=== PATIENT | female | born 1980 | race African-American/Black ===

== ENCOUNTER 2016-07-04 08:45 | Emergency (ER) | payer OTHER ==
[~2016-07-04] VITALS: Ht 160 cm; Wt 73.0 kg
[~2016-07-04 08:45] MED LIST: PRENATAL1 TA2 PO
[2016-07-04 09:12] VITALS: BP 100/45
[2016-07-04] MEDS ORDERED: IBUPROFEN 600 MG TAB PO ONE (09:25)
--- NOTE | 2016-07-04 09:29 | NUR ---
35/F TO ED WITH C/O LLQ ABD PAIN X6 DAYS. PAIN 8/10. DENIES N/V/D. LUNGS CLEAR BILAT. HR EVEN AND REGULAR. AAOX4. VSS. NO SIGNS OF DISTRESS.
--- NOTE | 2016-07-04 09:58 | NUR ---
Dr. Macias evaluating patient at bedside.
--- NOTE | 2016-07-04 10:21 | NUR ---
US tech at bedside for exam.
--- NOTE | 2016-07-04 11:00 | NUR ---
RPatient appears to be resting comfortably in bed. Vital Signs within normal limits. Respirations even and unlabored.
[2016-07-04] MEDS ORDERED: HYDROcodone/APAP 5/325 MG 1 TAB TAB PO ONE (11:10)
[2016-07-04] MEDS ORDERED: FLUCONAZOLE 100 MG TAB PO ONE (12:05)
[2016-07-04 12:37] VITALS: BP 126/53
== END 2016-07-04 12:37 | disposition home or self-care (01) ==
LOC: MED 08:45
DX: N83.8 Other noninflammatory disorders of ovary, fallopian tube and broad ligament (principal); B37.3 Candidiasis of vulva and vagina; K21.9 Gastro-esophageal reflux disease without esophagitis
CPT/HCPCS: 76856; 81001; 81025; 87086; 87210; 99285; Q0092

== ENCOUNTER 2017-02-20 19:46 | Emergency (ER) | payer OTHER ==
[~2017-02-20] VITALS: Ht 160 cm; Wt 76.2 kg
[2017-02-20 19:55] VITALS: BP 105/67
--- NOTE | 2017-02-20 20:45 | NUR ---
PT TAKEN TO BED 12
--- NOTE | 2017-02-20 20:49 | NUR ---
36 Y/O F W/C/O ABD CRAMPING AND WHITE DISCHARGE X 2 DAYS. PT DENIES ANY PAIN WITH URINATION, FEVER OR CHILLS. ER MADE AWARE.
[2017-02-20] MEDS ORDERED: NACL 0.9% 1,000 ML IV ONE (21:41)
[2017-02-20] MEDS ORDERED: MORPHINE SULFATE 4 MG/ML SYR IVP ONE (21:45)
[2017-02-20] MEDS ORDERED: ONDANSETRON 4 MG/2 ML VIAL IVP ONE (21:45)
[2017-02-20 22:15] LABS: HEMATOCRIT 38.7 % (36-48); HEMOGLOBIN 13.2 g/dL (12.0-16.0); MEAN CORPUSCULAR HEMOGLOBIN 31 pg (27-31); MEAN CORPUSCULAR HGB CONC 34 g/dL (33-37); MEAN CORPUSCULAR VOLUME 90 fL (80-94); PLATELET COUNT (AUTO) 242 K/uL (140-450); RED BLOOD CELL COUNT(AUTO) 4.29 MIL/uL (4.20-5.40); RED CELL DISTRIBUTION WIDTH 12.1 % (11.6-13.7); WHITE BLOOD COUNT (AUTO) 8.3 K/uL (4.8-10.8)
[2017-02-20 22:24] LABS: BILIRUBIN,URINE NEGATIVE (NEGATIVE); BLOOD, URINE NEGATIVE (NEGATIVE); COLOR,URINE YELLOW (YELLOW); LEUKOCYTE ESTERASE ,URINE NEGATIVE (NEGATIVE); NITRITE, URINE NEGATIVE (NEGATIVE); UGLUCOSE NEGATIVE (NEGATIVE)
[2017-02-20 22:25] LABS: ANION GAP 8.4 (8-16); CARBON DIOXIDE 29.3 mmol/L (21-32); CREATININE 1.1 mg/dL (0.6-1.3); POTASSIUM 3.7 mmol/L (3.5-5.1)
[2017-02-20 22:31] LABS: ALBUMIN 3.8 g/dL (3.4-5.0); TOTAL BILIRUBIN 0.2 mg/dL (0.0-1.0)
[2017-02-20 22:35] LABS: EOSINOPHILS % (MANUAL) 2 % (0-4); LYMPHOCYTES % (MANUAL) 33 % (20-46); MONOCYTES % (MANUAL) 3 % (5-12)
[2017-02-20] MEDS ORDERED: KETOROLAC 30 MG/ML VIAL IVP ONE (22:35)
[2017-02-20 22:42] LABS: APPEARANCE,URINE HAZY (CLEAR); RBC,URINE 0-5 (RARE) /HPF (0-5); WBC,URINE 0-5 (RARE) /HPF (0-5)
--- NOTE | 2017-02-20 22:55 | NUR ---
Pelvic exam performed by DR BRUCE with ME at bedside for entire examination. Patient tolerated procedure WELL. Patient assisted to position of comfort after examination.
--- NOTE | 2017-02-20 22:58 | NUR ---
Karla leija in ED - 02/20/17 at 2310 by [facility] TO [facility].
--- NOTE | 2017-02-20 22:58 | NUR ---
[facility] [place] CULTURE TAKEN TO LAB.
--- NOTE | 2017-02-20 23:25 | NUR ---
Patient discharged with v/s stable. Written and verbal after care instructions given and explained. Patient alert, oriented and verbalized understanding of instructions. Ambulatory with steady gait. All questions addressed prior to discharge. ID band removed. Patient advised to follow up with PMD. Rx of FLAGYL 500 MG, BENTYL 20 MG given. Patient educated on indication of medication including possible reaction and side effects. Opportunity to ask questions provided and answered.
[2017-02-20 23:26] VITALS: BP 110/64
== END 2017-02-20 23:25 | disposition home or self-care (01) ==
LOC: MED 19:46
DX: N76.0 Acute vaginitis (principal); R10.9 Unspecified abdominal pain; K21.9 Gastro-esophageal reflux disease without esophagitis
CPT/HCPCS: 36415; 74176; 80053; 81001; 81025; 83690; 85025; 87210; 96361; 96374; 96375; 99285; J1885; J2270; J2405; J7030

== ENCOUNTER 2018-02-21 08:59 | Emergency (ER) | payer OTHER ==
[~2018-02-21] VITALS: Ht 160 cm; Wt 75.3 kg
[2018-02-21 09:08] VITALS: BP 105/53
[2018-02-21 11:55] LABS: BASOPHILS % (AUTO) 0.4 % (0.0-2.0); EOSINOPHILS # (AUTO) 0.1 K/uL (0-0.4); EOSINOPHILS % (AUTO) 1.3 % (0.0-4.0); HEMATOCRIT 37.8 % (36-48); LYMPHOCYTES # (AUTO) 2.5 K/uL (2.5-16.5); LYMPHOCYTES % (AUTO) 32.2 % (20.5-51.1); MEAN CORPUSCULAR HEMOGLOBIN 31 pg (27-31); MEAN CORPUSCULAR HGB CONC 34 g/dL (33-37); MEAN CORPUSCULAR VOLUME 90.3 fL (80-94); MONOCYTES # (AUTO) 0.4 K/uL (0.8-1.0); MONOCYTES % (AUTO) 5.3 % (1.7-9.3); NEUTROPHILS # (AUTO) 4.7 K/uL (1.8-7.7); NEUTROPHILS % (AUTO) 60.8 % (42.2-75.2); PLATELET COUNT (AUTO) 248 K/uL (140-450); RED BLOOD CELL COUNT(AUTO) 4.19 MIL/uL (4.20-5.40); RED CELL DISTRIBUTION WIDTH 12.6 % (11.6-13.7); WHITE BLOOD COUNT (AUTO) 7.7 K/uL (4.8-10.8)
[2018-02-21] MEDS ORDERED: KETOROLAC 60 MG/2 ML VIAL IM ONE (12:05)
[2018-02-21 12:23] LABS: APPEARANCE,URINE CLEAR (CLEAR); BILIRUBIN,URINE NEGATIVE (NEGATIVE); BLOOD, URINE NEGATIVE (NEGATIVE); COLOR,URINE YELLOW (YELLOW); LEUKOCYTE ESTERASE ,URINE NEGATIVE (NEGATIVE); NITRITE, URINE NEGATIVE (NEGATIVE); UGLUCOSE NEGATIVE (NEGATIVE)
[2018-02-21 14:45] VITALS: BP 122/72
== END 2018-02-21 14:45 | disposition home or self-care (01) ==
LOC: MED 08:59
DX: O23.591 Infection of other part of genital tract in pregnancy, first trimester (principal); G43.909 Migraine, unspecified, not intractable, without status migrainosus; K21.9 Gastro-esophageal reflux disease without esophagitis
CPT/HCPCS: 36415; 76817; 81003; 81025; 84702; 85025; 87070; 87205; 87210; 96372; 99284; J1885; Q0092

== ENCOUNTER 2018-09-13 08:26 | Emergency (ER) | payer OTHER ==
[~2018-09-13] VITALS: Ht 163.8 cm; Wt 70.8 kg
[2018-09-13 08:34] VITALS: BP 122/64
--- NOTE | 2018-09-13 08:40 | NUR ---
PT AMB TO BED 3 WITH STEADY GAIT
--- NOTE | 2018-09-13 08:46 | NUR ---
PT BIB [facility] WITH C/O ABDOMINAL CRAMPING SINCE TUESDAY. STATES TO HAVE PAIN ON BOTH LATERAL SIDE OF THE STOMACH AND AT LOWER BACK REGION. +NAUSEA, DENIES VOMITING. +DIARRHEA SINCE TUESDAY. PATIENT STATES SHE STARTED PERIOD TUESDAY. PAIN 10/14. PT AAOX4, NORMAL BREATHING, MADE PT COMFORTABLE IN HER BED. HOB ELEVATED, SIDE RAILS UP . URINE SAMPLE COLLECETED. ER MD TO SEE THE PT. PMH- CHRONIC MIGRAINES RX- CANT RECALL NAME
[2018-09-13] MEDS ORDERED: DICYCLOMINE 20 MG/2 ML VIAL IM ONE (09:25)
[2018-09-13] MEDS ORDERED: LOPERAMIDE 2 MG CAP PO ONE (09:25)
[2018-09-13] MEDS ORDERED: MORPHINE SULFATE 4 MG/ML SYR IM ONE (09:25)
--- NOTE | 2018-09-13 09:38 | NUR ---
ADMINISTERED MEDS TO PT ORDERED. CONNECTED TO MONITOR . WILL CONTINUE TO MOITOR PT.
--- NOTE | 2018-09-13 09:43 | NUR ---
PT NOTIFIED OF STOOL COLLECTION. PALCE HAT THE BDESIDE. STATES WILL INFORM ONCE HAVE BM. NO BM AT THIS TIME.
[2018-09-13 10:02] LABS: BILIRUBIN,URINE NEGATIVE (NEGATIVE); BLOOD, URINE TRACE-L (NEGATIVE); COLOR,URINE YELLOW (YELLOW); LEUKOCYTE ESTERASE ,URINE TRACE (NEGATIVE); NITRITE, URINE NEGATIVE (NEGATIVE); UGLUCOSE NEGATIVE (NEGATIVE)
--- NOTE | 2018-09-13 10:23 | NUR ---
CHECKED ON PT , UNBALE TO GO FOR BM AT THIS TIME.
[2018-09-13 10:33] LABS: APPEARANCE,URINE SLIGHTLY HAZY (CLEAR); RBC,URINE 0-5 /HPF (0-5); WBC,URINE 0-5 /HPF (0-5)
--- NOTE | 2018-09-13 10:45 | NUR ---
PT UNABLE TO GO FOR BM. DR. SPICER AWARE.
[2018-09-13 10:59] LABS: BARBITURATE, URINE NEG. ng/ml (NEG <=200); BENZODIAZEPINE, URINE NEG. ng/mL (NEG <=200); CANNABINOID, URINE NEG. ng/mL (NEG <=50); COCAINE, URINE NEG. ng/mL (NEG <=300); OPIATE, URINE NEG. ng/mL (NEG <=2000); PHENCYCLIDINE SCREEN,URINE NEG. ng/mL (NEG <=25)
[2018-09-13 11:46] VITALS: BP 105/60
--- NOTE | 2018-09-13 11:46 | NUR ---
Patient discharged with v/s stable. Written and verbal after care instructions given and explained. Patient alert, oriented and verbalized understanding of instructions. Ambulatory with steady gait. All questions addressed prior to discharge. ID band removed. Patient advised to follow up with PMD. Rx of FIORICET, FLAGYL, IMODIUM given. Patient educated on indication of medication including possible reaction and side effects. Opportunity to ask questions provided and answered.
== END 2018-09-13 11:46 | disposition home or self-care (01) ==
LOC: MED 08:26
DX: R19.7 Diarrhea, unspecified (principal); G43.909 Migraine, unspecified, not intractable, without status migrainosus; K21.9 Gastro-esophageal reflux disease without esophagitis
CPT/HCPCS: 80305; 81001; 81025; 96372; 99283; J0500; J2270

== ENCOUNTER 2020-06-28 13:53 | Emergency (ER) | payer OTHER ==
[~2020-06-28] VITALS: Ht 160 cm; Wt 69.9 kg
[2020-06-28 14:19] VITALS: BP 90/59
--- NOTE | 2020-06-28 14:23 | NUR ---
Pt ambulated to ER bed 3 with steady gait.
--- NOTE | 2020-06-28 14:24 | NUR ---
39 Y/O FEMALE C/O L KNEE PAIN 10/14 DESCRIBES SHARP AND TINGLING X3DAYS. PT STATES SHE INJURED KNEE AND REINJURED YESTERDAY BY TWISTING WRONG. [place]ING[place] PINS/NEEDLES" SENSATIONS THAT RADIATES UPWARDS. DENIES OTC MEDS. PT STATES +N, NO VOMITING, DENIES FEVER/CHILLS. PMH: MIGRAINES RX: [place]AN NKA
--- NOTE | 2020-06-28 14:39 | NUR ---
Pt taken to XR via W/C with [facility].
--- NOTE | 2020-06-28 14:46 | NUR ---
Pt taken to ER bed 3 via W/C.
[2020-06-28] MEDS ORDERED: KETOROLAC 30 MG/ML VIAL IM ONE (14:55)
[2020-06-28] MEDS ORDERED: IBUP-2213 PO (15:25)
--- NOTE | 2020-06-28 15:56 | NUR ---
PT PLACED IN LEFT KNEE IMMOBILIZOR, CMS WNL BEFORE AND AFTER. PT ALSO GIVEN CRUTCHES, CRUTCHES ADJUSTED TO PT SIZE AND HEIGHT. PT STATES THAT THEY ALREADY KNOW HOW TO USE CRUTCHES. PT STATES THEY HAVE USED THEM IN THE PAST. PT SHOWED PROPER USE OF CRUTCHES IN FRONT OF ER STAFF. PT STATES THEY FEEL COMFORTABLE WHILE USING CRUTCHES AND HAD NO FURTHER QUESTIONS. RN NOTIFIED
[2020-06-28 15:57] VITALS: BP 90/59
--- NOTE | 2020-06-28 15:58 | NUR ---
Patient discharged with v/s stable. Written and verbal after care instructions given and explained. Patient alert, oriented and verbalized understanding of instructions. Ambulatory with steady gait. All questions addressed prior to discharge. ID band removed. Patient advised to follow up with PMD. Rx of ibuprofen 600mg PO TID PRN PAIN given. Patient educated on indication of medication including possible reaction and side effects. Opportunity to ask questions provided and answered.
== END 2020-06-28 15:58 | disposition home or self-care (01) ==
LOC: MED 13:53
DX: S83.92XA Sprain of unspecified site of left knee, initial encounter (principal); K21.9 Gastro-esophageal reflux disease without esophagitis; G43.909 Migraine, unspecified, not intractable, without status migrainosus; X50.0XXA Overexertion from strenuous movement or load, initial encounter; Y93.89 Activity, other specified; Y92.89 Other specified places as the place of occurrence of the external cause; Y99.8 Other external cause status
CPT/HCPCS: 29505; 73562; 96372; 99283; J1885

== ENCOUNTER 2022-02-23 18:11 | Emergency (ER) | payer OTHER ==
[~2022-02-23] VITALS: Ht 162.6 cm; Wt 74.8 kg
[~2022-02-23 18:11] MED LIST changes: +IBUP-2213 PO; -PRENATAL1 TA2 PO
[2022-02-23 18:22] VITALS: BP 117/72
--- NOTE | 2022-02-23 18:31 | NUR ---
AMBULATED TO BED 4
--- NOTE | 2022-02-23 18:34 | NUR ---
AMBULATED TO BATHROOM
[2022-02-23] MEDS ORDERED: MORPHINE SULFATE 4 MG/ML SYR IVP ONE (18:45)
[2022-02-23] MEDS ORDERED: ONDANSETRON 4 MG/2 ML VIAL IVP ONE (18:45)
[2022-02-23] MEDS ORDERED: NACL 0.9% 1,000 ML IV ONE (18:45)
[2022-02-23 18:49] LABS: BASOPHILS % (AUTO) 0.6 % (0.0-2.0); EOSINOPHILS # (AUTO) 0.1 K/uL (0-0.4); EOSINOPHILS % (AUTO) 0.8 % (0.0-4.0); HEMOGLOBIN 12.3 g/dL (12.0-16.0); LYMPHOCYTES # (AUTO) 3.2 K/uL (2.5-16.5); LYMPHOCYTES % (AUTO) 36.1 % (20.5-51.1); MEAN CORPUSCULAR HEMOGLOBIN 32 pg (27-31); MEAN CORPUSCULAR HGB CONC 35 g/dL (33-37); MEAN CORPUSCULAR VOLUME 89.4 fL (80-94); MONOCYTES # (AUTO) 0.6 K/uL (0.8-1.0); MONOCYTES % (AUTO) 6.4 % (1.7-9.3); NEUTROPHILS % (AUTO) 56.1 % (42.2-75.2); PLATELET COUNT (AUTO) 246 K/uL (140-450); RED BLOOD CELL COUNT(AUTO) 3.92 MIL/uL (4.20-5.40); RED CELL DISTRIBUTION WIDTH 12.8 % (11.6-13.7); WHITE BLOOD COUNT (AUTO) 8.9 K/uL (4.8-10.8)
[2022-02-23 18:51] LABS: APPEARANCE,URINE CLEAR (CLEAR); BILIRUBIN,URINE NEGATIVE (NEGATIVE); BLOOD, URINE NEGATIVE (NEGATIVE); COLOR,URINE YELLOW (YELLOW); LEUKOCYTE ESTERASE ,URINE 1+ (NEGATIVE); NITRITE, URINE NEGATIVE (NEGATIVE); UGLUCOSE NEGATIVE (NEGATIVE)
[2022-02-23 19:01] LABS: OTHER CASTS, URINE None Seen /LPF (None Seen)
[2022-02-23 19:08] LABS: ALBUMIN 3.9 g/dL (3.4-5.0); ANION GAP 10.6 (8-16); CARBON DIOXIDE 31.3 mmol/L (21-32); CREATININE 1.2 mg/dL (0.6-1.3); POTASSIUM 3.9 mmol/L (3.5-5.1); TOTAL BILIRUBIN 0.2 mg/dL (0.0-1.0)
--- NOTE | 2022-02-23 19:26 | NUR ---
41 Y/O FEMALE BIB SELF C/O LOWER ABD PAIN RADIATING TO THE LOWER BACK WITH NVX3 DAYS, 1 EPISODE TODAY. DENIES ANY BLOOD IN STOOL, URINE OR VOMITUS. DENIES ANY URINARY S/S. DENIES ANY DIARRHEA. NKA PMH: DENIES
--- NOTE | 2022-02-23 19:29 | NUR ---
PT TAKEN TO CT VIA JESUS ALBERTO
--- NOTE | 2022-02-23 19:30 | NUR ---
Pt report given to ZOË CASAS. Transfer of care at this time.
--- NOTE | 2022-02-23 19:30 | NUR ---
TRANSFER OF CARE FROM DAY SHIFT, REPORT RECEIVED FROM DARWIN
[2022-02-23] MEDS ORDERED: CEPH-588 PO (20:53)
[2022-02-23] MEDS ORDERED: ONDA-188 PO (20:53)
[2022-02-23] MEDS ORDERED: cefTRIAXone 1,000 MG VIAL ONE (21:36)
[2022-02-23 21:50] VITALS: BP 117/72
--- NOTE | 2022-02-23 21:50 | NUR ---
Patient discharged with v/s stable. Written and verbal after care instructions given and explained. Patient alert, oriented and verbalized understanding of instructions. Ambulatory with steady gait. All questions addressed prior to discharge. ID band removed. Patient advised to follow up with PMD. Rx of KEFLEX, ZOFRAN given. Patient educated on indication of medication including possible reaction and side effects. Opportunity to ask questions provided and answered. DX: URINARY TRACT INFECTION, ADULT
--- NOTE | 2022-03-11 23:51 | NUR ---
LATE ENTRY* NS DISCONTINUED AT 2000
== END 2022-02-23 21:50 | disposition home or self-care (01) ==
LOC: MED 18:11
DX: N39.0 Urinary tract infection, site not specified (principal); R11.2 Nausea with vomiting, unspecified; K21.9 Gastro-esophageal reflux disease without esophagitis; Z79.899 Other long term (current) drug therapy; Z98.890 Other specified postprocedural states
CPT/HCPCS: 36415; 74177; 80053; 81001; 81025; 83690; 85025; 87086; 96361; 96365; 96375; 99285; J0696; J2270; J2405; J7030; Q0163; Q9967

== ENCOUNTER 2022-04-14 18:59 | Emergency (ER) | payer OTHER ==
[~2022-04-14] VITALS: Ht 160 cm; Wt 73.0 kg
[~2022-04-14 18:59] MED LIST changes: +CEPH-588 PO; +ONDA-188 PO
[2022-04-14 19:15] VITALS: BP 109/69
--- NOTE | 2022-04-14 19:15 | NUR ---
TO LOBBY A/W BED AMBULATORY
--- NOTE | 2022-04-14 19:48 | NUR ---
PT TAKEN TO BED 9
--- NOTE | 2022-04-14 19:54 | NUR ---
Dr. Hurley examining patient.
--- NOTE | 2022-04-14 20:25 | NUR ---
Patient resting in bed, A/Ox4, chest rise and fall symmetrical, no s/s of distress.
[2022-04-14 20:39] LABS: APPEARANCE,URINE CLEAR (CLEAR); BILIRUBIN,URINE NEGATIVE (NEGATIVE); BLOOD, URINE NEGATIVE (NEGATIVE); COLOR,URINE YELLOW (YELLOW); LEUKOCYTE ESTERASE ,URINE TRACE (NEGATIVE); NITRITE, URINE POSITIVE (NEGATIVE); UGLUCOSE NEGATIVE (NEGATIVE)
--- NOTE | 2022-04-14 20:45 | NUR ---
Dr. Hurley examining patient.
[2022-04-14 20:49] LABS: OTHER CASTS, URINE None Seen /LPF (None Seen); RBC,URINE 0-5 /HPF (0-5)
[2022-04-14] MEDS ORDERED: IBUP-1842 PO (20:54)
[2022-04-14] MEDS ORDERED: DOXY100T9 PO (20:54)
[2022-04-14] MEDS ORDERED: PYR100 PO (20:54)
[2022-04-14] MEDS ORDERED: IBUPROFEN 600 MG TAB PO ONE (20:55)
[2022-04-14] MEDS ORDERED: cefTRIAXone 1,000 MG in LIDOCAINE MPF 1% 2.1 ML IM ONE (20:55)
[2022-04-14] MEDS ORDERED: ONDANSETRON 4 MG ODT PO ONE (20:55)
[2022-04-14] MEDS ORDERED: cefTRIAXone 1,000 MG VIAL ONE (21:06)
[2022-04-14] MEDS ORDERED: LIDOCAINE MPF 1% 5 ML ONE (21:07)
[2022-04-14] MEDS ORDERED: METR-435 PO (22:17)
[2022-04-14 22:27] VITALS: BP 109/69
--- NOTE | 2022-04-14 22:29 | NUR ---
Patient discharged with v/s stable. Written and verbal after care instructions given and explained. Patient alert, oriented and verbalized understanding of instructions. Ambulatory with steady gait. All questions addressed prior to discharge. ID band removed. Patient advised to follow up with PMD. Rx of DOXYCYCLINE, MOTRIN, METRONIDAZOLE, PYRIDIUM given. Patient educated on indication of medication including possible reaction and side effects. Opportunity to ask questions provided and answered.
== END 2022-04-14 22:29 | disposition home or self-care (01) ==
LOC: MED 18:59
DX: A59.01 Trichomonal vulvovaginitis (principal); N72 Inflammatory disease of cervix uteri; N39.0 Urinary tract infection, site not specified; K21.9 Gastro-esophageal reflux disease without esophagitis; Z11.3 Encounter for screening for infections with a predominantly sexual mode of transmission; Z88.5 Allergy status to narcotic agent; Z79.899 Other long term (current) drug therapy
CPT/HCPCS: 81001; 81025; 87070; 87086; 87210; 87491; 96372; 99283; J0696; J2001; Q0162

== ENCOUNTER 2022-11-18 18:30 | Emergency (ER) | payer OTHER ==
[~2022-11-18] VITALS: Ht 167.6 cm; Wt 59.0 kg
[~2022-11-18 18:30] MED LIST changes: +DOXY100T9 PO; +IBUP-1842 PO; +METR-435 PO; +PYR100 PO
[2022-11-18 19:11] VITALS: BP 104/52; PULSE 86; RESP 18; TEMP 97.8; O2SAT 98
[2022-11-18 22:25] VITALS: BP 104/52; PULSE 86; RESP 18; TEMP 97.8; O2SAT 98
== END 2022-11-18 22:25 | disposition home or self-care (01) ==
LOC: MED 18:30
DX: M25.562 Pain in left knee (principal); K21.9 Gastro-esophageal reflux disease without esophagitis; Z88.1 Allergy status to other antibiotic agents; Z88.5 Allergy status to narcotic agent; Z79.899 Other long term (current) drug therapy; Z98.890 Other specified postprocedural states
CPT/HCPCS: 73562; 81025; 99283

== ENCOUNTER 2023-01-22 10:04 | Emergency (ER) | payer OTHER ==
[~2023-01-22] VITALS: Ht 160 cm; Wt 73.9 kg
[2023-01-22 10:17] VITALS: BP 119/97; PULSE 95; RESP 20; TEMP 97.8; O2SAT 96
[2023-01-22] MEDS ORDERED: KETOROLAC 30 MG/ML VIAL IM ONE (11:15)
[2023-01-22] MEDS ORDERED: ONDANSETRON 4 MG ODT PO ONE (11:15)
[2023-01-22] MEDS ORDERED: ONDA-188 SL (11:33)
[2023-01-22] MEDS ORDERED: IMI50 PO (11:33)
[2023-01-22 11:40] VITALS: BP 119/97; PULSE 95; RESP 20; TEMP 97.8; O2SAT 96
== END 2023-01-22 11:40 | disposition home or self-care (01) ==
LOC: MED 10:04
DX: G43.909 Migraine, unspecified, not intractable, without status migrainosus (principal); K21.9 Gastro-esophageal reflux disease without esophagitis; Z79.899 Other long term (current) drug therapy; Z88.5 Allergy status to narcotic agent; Z88.8 Allergy status to other drugs, medicaments and biological substances
CPT/HCPCS: 81025; 96372; 99283; J1885; Q0162

== ENCOUNTER 2023-04-26 21:32 | Emergency (ER) | payer OTHER ==
[~2023-04-26] VITALS: Ht 160 cm; Wt 73.5 kg
[~2023-04-26 21:32] MED LIST changes: +IMI50 PO; +ONDA-188 SL
[2023-04-26 21:49] VITALS: BP 117/59; PULSE 94; RESP 16; TEMP 97.9; O2SAT 97
[2023-04-26 22:04] LABS: APPEARANCE,URINE SL CLOUDY (CLEAR); BILIRUBIN,URINE NEGATIVE (NEGATIVE); BLOOD, URINE TRACE-I (NEGATIVE); COLOR,URINE YELLOW (YELLOW); LEUKOCYTE ESTERASE ,URINE TRACE (NEGATIVE); NITRITE, URINE NEGATIVE (NEGATIVE); PROTEIN,URINE NEGATIVE (NEGATIVE); UGLUCOSE NEGATIVE (NEGATIVE); UROBILINOGEN,URINE 0.2 EU/dL (0.2 - 1)
[2023-04-26 22:07] LABS: BACTERIA,URINE 10-30 (MOD) /HPF (None Seen); MUCUS,URINE 1+ /LPF (None Seen); RBC,URINE 0-5 /HPF (0-5)
[2023-04-26 22:13] VITALS: BP 102/76; PULSE 86
[2023-04-26 22:15] VITALS: O2SAT 99
[2023-04-26] MEDS ORDERED: CEPH-588 PO (23:05)
[2023-04-26] MEDS ORDERED: IBUP-2213 PO (23:05)
[2023-04-26] MEDS: KETOROLAC 30 MG/ML VIAL IM ONE (23:34)
== END 2023-04-26 23:50 | disposition home or self-care (01) ==
LOC: MED 21:32
DX: N39.0 Urinary tract infection, site not specified (principal); K21.9 Gastro-esophageal reflux disease without esophagitis; Z88.5 Allergy status to narcotic agent; Z88.8 Allergy status to other drugs, medicaments and biological substances; Z79.899 Other long term (current) drug therapy
CPT/HCPCS: 81001; 81025; 87086; 96372; 99283; J1885

== ENCOUNTER 2023-10-15 12:28 | Emergency (ER) | payer OTHER ==
[~2023-10-15] VITALS: Ht 160 cm; Wt 69.9 kg
[2023-10-15 12:40] VITALS: BP 112/56; PULSE 77; RESP 22; TEMP 98.3; O2SAT 99
[2023-10-15 13:00] VITALS: O2SAT 99
[2023-10-15 13:42] LABS: APPEARANCE,URINE CLEAR (CLEAR); BILIRUBIN,URINE NEGATIVE (NEGATIVE); BLOOD, URINE NEGATIVE (NEGATIVE); COLOR,URINE YELLOW (YELLOW); LEUKOCYTE ESTERASE ,URINE NEGATIVE (NEGATIVE); NITRITE, URINE NEGATIVE (NEGATIVE); PROTEIN,URINE NEGATIVE (NEGATIVE); UGLUCOSE NEGATIVE (NEGATIVE); UROBILINOGEN,URINE 0.2 EU/dL (0.2 - 1)
[2023-10-15] MEDS: diphenhydrAMINE 50 MG/ML VIAL IVP ONE (14:08)
[2023-10-15] MEDS: PROCHLORPERAZINE 10 MG/2 ML VIAL IVP ONE (14:08)
[2023-10-15] MEDS: KETOROLAC 30 MG/ML VIAL IVP ONE (14:09)
[2023-10-15] MEDS: NACL 0.9% 1,000 ML IV ONE (14:09)
[2023-10-15 15:01] VITALS: BP 110/58; PULSE 74; RESP 16; TEMP 98.3
[2023-10-15 15:08] VITALS: O2SAT 99
[2023-10-15] MEDS ORDERED: ACET-9234 PO (15:26)
[2023-10-15] MEDS ORDERED: METR-435 PO (15:26)
== END 2023-10-15 15:42 | disposition home or self-care (01) ==
LOC: MED 12:28
DX: G43.909 Migraine, unspecified, not intractable, without status migrainosus (principal); N76.0 Acute vaginitis; B96.89 Other specified bacterial agents as the cause of diseases classified elsewhere; K21.9 Gastro-esophageal reflux disease without esophagitis; Z79.1 Long term (current) use of non-steroidal anti-inflammatories (NSAID); Z79.2 Long term (current) use of antibiotics; Z79.899 Other long term (current) drug therapy; Z88.1 Allergy status to other antibiotic agents; Z88.5 Allergy status to narcotic agent
CPT/HCPCS: 81003; 81025; 87210; 87491; 96361; 96374; 96375; 99284; J0780; J1200; J1885; J7030